=== PATIENT | male | born 1960 | race Caucasian/White ===

== ENCOUNTER 2018-02-01 19:27 | Inpatient (IN) ==
[2018-02-01] MEDS ORDERED: Gentamicin/NS 80 mg Premix 100 ML IV.SIG ONE (23:05)
[2018-02-01] MEDS ORDERED: ceFAZolin 2 GM Premix Inj 2 GM/50 ML PIGGYBACK IV.SIG ONE (23:05)
[2018-02-01] MEDS ORDERED: Sodium Chlor 0.9% Inj 500 ML IV.SIG ONE (23:05)
[2018-02-01] MEDS ORDERED: Diphtheria/Tetanus/Pertussis Vaccine Inj 0.5 ML Syringe IM ONE (23:08)
--- NOTE | 2018-02-01 23:08 | ED ---
HPI General Chief complaint: Extremity Injury, Lower Stated complaint: Fall Time Seen by Provider: 02/01/18 22:39 Source: patient Mode of arrival: ambulatory Limitations: no limitations History of Present Illness HPI narrative: The patient is a 57 year old male who presents to the [facility] emergency department with a history of tripping while walking this morning at approximately 4 AM turning his right foot under. He denies having any other injury associated with this. 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 He reports that the pins in the right great toe were removed years ago. The patient reports that he acquired a laceration along the base of the right great toe, however he had many things to do throughout the day and did not have it evaluated until this evening when he went to a local urgent care center. He reports that they did an x-ray and noted that the patient had a fracture. They sent him to the emergency department for evaluation for an open fracture of the foot. He denies hitting his head or losing consciousness. He denies having any neck pain , numbness or tingling to his arms or legs that is new, or weakness of his arms or legs that is new. On review of systems otherwise, he denies having any known recent fevers, cough, congestion, chest pain, shortness of breath, abdominal pain, vomiting, diarrhea, urinary symptoms, or other neurologic symptoms. Patient reports that he has been moving his bowels regularly. The patient cannot recall when his tetanus was last updated. Related Data Home Medications Medication Instructions Recorded Confirmed No Known Home Medications 02/02/18 02/02/18 Allergies Allergy/AdvReac Type Severity Reaction Status Date / Time No Known Allergies Allergy Verified 02/01/18 22:35 Review of Systems ROS Unobtainable All other systems reviewed negative except as stated in HPI [facility] Medical History Medical History Acoustic neuroma (Acute) Mjvkudm-Uldvp-Bhvmj disease (Acute) Hyperlipemia (Acute) Acid reflux (Acute) Surgical History Surgical History H/O foot surgery (Acute) H/O knee surgery (Acute) Social History Social History Substance History: No History of Abuse, Active Abuse and Past History Second Hand Smoke Exposure: No Smoking Status: Never smoker How Often Do You Have a Drink Containing Alcohol: 2 to 3 times a week Recent Travel in [facility] within the Last 8 Weeks: No Recent Out of Country Travel within the Last 8 Weeks: No Immunization History Tetanus Immunization: Unsure Hx Influenza Vaccine This Season: No Exam Const General: cooperative, no acute distress and well developed Nutritional Appearance: well nourished Orientation: alert, awake and oriented x3 HENMT Head: normocephalic and atraumatic Nose: no nasal discharge and no epistaxis Mouth: moist mucous membranes Throat: posterior oropharynx normal Eyes Sclera: normal sclerae Pupils: PERRL Neck Neck: trachea midline and no JVD Resp Effort & Inspection: no use of accessory muscles Auscultation: clear to auscultation bilaterally Cardio Rate: regular rate Rhythm: regular rhythm Heart Sounds: no murmurs GI Inspection: non-distended Palpation: soft, no hepatosplenomegaly and nontender Auscultation: normal bowel sounds Back/Spine/Pelvis Back: no CVA tenderness Thoracic/Lumbar Spine: thoracic and lumbar spine normal to inspection Skin General: dry skin (warm) Trauma: laceration (Patient has a laceration along the base of the great toe right foot. This is along the sole. This is approximately 4 cm in greatest dimension. There is no active bleeding.) Neuro General: alert, awake and oriented x3 Cranial Nerves: CN's II-XI intact bilaterally Speech: speech normal Motor: no movement abnormalities noted Sensory Exam: no sensory deficits noted Extrem General: normal to inspection, no clubbing, no cyanosis and edema (Specifically involving the right foot, the area of interest) Right upper extremity: normal to inspection Left upper extremity: normal to inspection Right lower extremity: foot Details: normal capillary refill, abnormal to inspection, ecchymosis and other (On examination of the patient's right foot the patient is noted to have swelling to the first, second, and third digit with ecchymosis involving the first, second, and third digit. The patient is noted to have a laceration along the sole of the foot base of the great toe. Bleeding is controlled.) Psych Mood: congruent mood Affect: normal affect Judgment: judgment good Course Consultations Consultation #1: The patient's case including history, pertinent physical examination findings, and laboratory studies were discussed with Dr. Rodriguez, the bellhop. He agreed with the plan to start the patient on IV antibiotic. He requested that the patient be admitted to the medical service and he will see the patient in consultation. Time: 23:35 Consultation #2: The patient's case including history, pertinent physical examination findings, and laboratory studies were discussed with Dr. Sagastume. It was agreed that the patient would be admitted to the hospitalist service. Initial Documented Vital Signs Temperature 99.3 F 02/01/18 21:15 Pulse Rate 71 02/01/18 21:15 Respiratory Rate 16 02/01/18 21:15 Blood Pressure 143/73 H 02/01/18 21:15 Pulse Oximetry 97 02/01/18 21:15 Last Documented Vital Signs Temperature 97.6 F 02/02/18 04:05 Pulse Rate 61 02/02/18 04:05 Respiratory Rate 18 02/02/18 04:05 Blood Pressure 96/59 L 02/02/18 04:05 Pulse Oximetry 96 02/02/18 04:05 Medical Decision Making MDM Narrative Medical decision making narrative: During the course of the patient's emergency department visit, the patient's history, examination, and differential diagnosis were reviewed with the patient. The patient was placed on a monitor and storage bin tender with oximetry and frequent blood pressure monitoring. The patient had IV access obtained and blood work sent for analysis. A workup was started regarding the patient's reported open fracture of the right foot. Differential diagnosis includes neurovascular injury to the right foot, versus open fracture , versus laceration. The patient was initially provided an update to his tetanus, Ancef 2 g IV, gentamicin 80 mg IV. The patient's white blood cell count is 8.1, platelets 173 with a monocytosis at 9.3, hemoglobin 15.3, PT 10.3, PTT 23.9, chemistry is remarkable for a glucose of 140, GFR 86. The patient's imaging revealed a right foot x-ray that shows a mildly displaced fracture of the great toe extending intra-articularly at the first metatarsal- phalangeal. Fracture line also extending through the distal portion of the proximal phalanx. The patient's case was discussed with the bellhop on-call. He recommended that the patient be admitted to the hospitalist service and he will see the patient in consultation. The patient was placed in a short posterior leg splint after the patient's wound was irrigated and dressed. The patient's results were discussed with the patient, including the plan of care. I explained that further testing and/ or monitoring is indicated based on the patient's history, examination, and/ or laboratory findings. Therefore, I recommended admission for additional evaluation. The patient expressed understanding and was agreeable with this plan. The patient was admitted to the hospital in stable condition and sent to a bed under the care of the service. Differential Diagnosis Differential Diagnosis: neurovascular injury to the right foot, versus tendon injury to the right foot, versus open fracture, versus laceration Medical Records Medical records reviewed: Yes I reviewed the patient's medical records. Lab Data Result diagrams: 02/01/18 23:20 02/01/18 23:20 Lab Results 02/01/18 02/01/18 02/01/18 Range/Units 23:20 23:20 23:20 WBC 8.1 (4.0-11.0) th/mm3 RBC 4.81 (4.50-5.90) mil/mm3 Hgb 15.3 (13.0-17.0) gm/dL Hct 45.0 (39.0-51.0) % MCV 93.5 (80.0-100.0) fL MCH 31.8 (27.0-34.0) pg MCHC 34.0 (32.0-36.0) % RDW 12.8 (11.6-17.2) % Plt Count 173 (150-450) th/mm3 MPV 8.4 (7.0-11.0) fL Neut % (Auto) 64.9 (16.0-70.0) % Lymph % (Auto) 23.2 (9.0-44.0) % [place] % (Auto) 9.3 H (0.0-8.0) % Eos % (Auto) 2.1 (0.0-4.0) % Baso % (Auto) 0.5 (0.0-2.0) % Neut # (Auto) 5.3 (1.8-7.7) th/mm3 Lymph # (Auto) 1.9 (1.0-4.8) th/mm3 [place] # (Auto) 0.8 (0.0-0.9) th/mm3 Eos # (Auto) 0.2 (0.0-0.4) th/mm3 Baso # (Auto) 0.0 (0.0-0.2) th/mm3 WBC Differential . Differential Comment Auto diff final PT 10.3 (9.8-11.6) sec INR 1.0 Ratio APTT 23.9 L (24.3-30.1) sec Sodium 143 (136-145) meq/L Potassium 3.7 (3.5-5.1) meq/L Chloride 106 (98-107) meq/L Carbon Dioxide 24.5 (21.0-32.0) meq/L Anion Gap 13 (5-15) meq/L BUN 11 (7-18) mg/dL Creatinine 0.91 (0.60-1.30) mg/dL Estimated GFR 86 L (>89) mL/min Random Glucose 140 H (74-106) mg/dL Calcium 9.4 (8.5-10.1) mg/dL Imaging Data Radiologist's impression: Foot X-Ray 02/01/18 23:02 CONCLUSION: Mildly displaced fractures of the right great toe. No dislocation. Discharge Plan Discharge Disposition Patient Disposition: 30 Still Patient Discharge Details Diagnosis: Open fracture of great toe of right foot Physicians Team ED Provider: Yessica Berkowitz Primary Care Provider: Primary Care Beth Palmer Attending Provider: Rodney Johnson Other Providers: Tyrell Rodriguez Discharge Interventions Interventions: Vital Signs Last Done: 02/02/18 01:19 Status ED Status: Admitted Observation Patient
[2018-02-01 23:33] LABS: Baso % (Auto) 0.5 % (0.0-2.0); Eos # (Auto) 0.2 th/mm3 (0.0-0.4); Eos % (Auto) 2.1 % (0.0-4.0); Hemoglobin 15.3 gm/dL (13.0-17.0); Lymph # (Auto) 1.9 th/mm3 (1.0-4.8); Lymph % (Auto) 23.2 % (9.0-44.0); Mean Corpuscular Hemoglobin 31.8 pg (27.0-34.0); Mean Corpuscular Volume 93.5 fL (80.0-100.0); Mean Platelet Volume 8.4 fL (7.0-11.0); Mono # (Auto) 0.8 th/mm3 (0.0-0.9); Mono % (Auto) 9.3 % (0.0-8.0); Neut # (Auto) 5.3 th/mm3 (1.8-7.7); Neut % (Auto) 64.9 % (16.0-70.0); Platelet Count 173 th/mm3 (150-450); Red Blood Count 4.81 mil/mm3 (4.50-5.90); Red Cell Distribution Width 12.8 % (11.6-17.2); White Blood Count 8.1 th/mm3 (4.0-11.0)
[2018-02-01 23:41] LABS: Activated Partial Thrombo Time 23.9 sec (24.3-30.1); Prothrombin Time 10.3 sec (9.8-11.6)
[2018-02-01 23:54] LABS: Calcium 9.4 mg/dL (8.5-10.1); Carbon Dioxide 24.5 meq/L (21.0-32.0); Potassium 3.7 meq/L (3.5-5.1)
--- NOTE | 2018-02-01 23:59 | XR ---
EXAM DATE: 02/01/2018 11:25 PM EDT AGE/SEX: 57 years / Male INDICATIONS: Inflammation and bruising to right foot status post fall. Laceration to posterior aspec t of 1st digit, right foot. CLINICAL DATA: This is the patient's initial encounter. Patient reports that signs and symptoms have been present for 1 day and indicates a pain score of 7/10. MEDICAL/SURGICAL HISTORY: None. None. COMPARISON: No prior exams available for comparison. FINDINGS: Mildly displaced fracture of the great toe extending intra-articularly at the first MTP. There may be fusion across the interphalangeal joint. Fracture line also extending through the distal portion pro ximal phalanx. No other fracture identified. Moderate degenerative change in the right foot. CONCLUSION: Mildly displaced fractures of the right great toe. No dislocation. Electronically signed by: Arnold Szymanski MD 02/01/2018 11:57 PM EDT
[2018-02-02] MEDS ORDERED: Bisacodyl 10 MG Supp RECTAL PRN (00:47)
[2018-02-02] MEDS ORDERED: Acetaminophen 325 MG Tablet PO PRN (00:47)
[2018-02-02] MEDS ORDERED: Temazepam 15 MG Capsule PO PRN (00:47)
[2018-02-02] MEDS ORDERED: Morphine Inj 4 MG/ML Vial IV.PUSH PRN (00:55)
--- NOTE | 2018-02-02 01:02 | P.HP ---
History of Present Illness Service: [facility] Primary Care Physician: No Primary Care Physician Chief Complaint: Right great toe injury History of Present Illness: 57 year old male with a PMH of GERD, HLD and Nenyphe-Kvozs-Xyzen presents to the ED for evaluation of a right great toe injury. The patient reports he was walking this morning after getting out of bed when he tripped on the rug and fell, bending his foot underneath his body. He reports heavy bleeding from a laceration for the next 2 hours. He was able to stop the bleeding and ran errands until this evening when he sought out evaluation from urgent care. There was concern for an open fracture and the patient was sent to the ED for further evaluation. He denies any pain in the foot. No fever/chills. No CP, SOB. No abdominal pain. No nausea/vomiting/diarrhea. Inpatient Certification: I certify that the inpatient services were ordered in accordance with Medicare regulations governing the order. This includes certification that hospital inpatient services are reasonable and necessary and in the case of services not specified as inpatient-only under 42 CFR 419.22(n), that they are appropriately provided as inpatient services in accordance to with the 2-midnight benchmark under 43 CFR 412.3(e) Estimated Total Length of Stay (Days): 2 Plans for Post Hospital Care: Home Review of Systems All other systems reviewed negative except as stated in HPI [facility] - History History Provided By: Patient - Medical History Medical History: Medical History (Last Updated 02/01/18 @ 23:12 by Yessica Berkowitz MD) Acoustic neuroma Ksbabna-Harxz-Sqchm disease Hyperlipemia Acid reflux - Surgical History Surgical History: Surgical History (Last Updated 02/01/18 @ 22:32 by Acacia Cooper) H/O foot surgery H/O knee surgery - Tobacco History Second Hand Smoke Exposure: No Tobacco Use In Past 30 Days: No Smoking Status: Never smoker - Alcohol History How Often Do You Have a Drink Containing Alcohol: 2 to 4 times a month - Substance Use History Substance History: No History of Abuse - Travel History Recent Travel in the [place] Within the Last 8 Weeks: No Recent Travel Out of the Country Within the Last 8 Weeks: No - Immunization History Tetanus Immunization: Unsure Hx Influenza Vaccine This Season: No Medications and Allergies Active Medications: Active Medications Acetaminophen (Tylenol) 650 mg PO Q4H PRN PRN Reason: Temp > 100.4 Al Hydroxide/Mg Hydroxide (Milk Of Magnesia Liq) 30 ml PO Q12H PRN PRN Reason: Mild Constipation Bisacodyl (Dulcolax Supp) 10 mg RECTAL DAILY PRN PRN Reason: SEVERE CONSITIPATION Cefazolin Sodium 1,000 mg/ (Sodium Chloride) 100 mls @ 200 mls/hr IV.SIG Q8H BLAYNE Sodium Chloride (Ns Inj) 1,000 mls @ 100 mls/hr IV.CONT .Q10H BLAYNE Gentamicin Sulfate/Sodium Chloride (Gentamicin/Ns 80 Mg Premix) 100 mls @ 200 mls/hr IV.SIG Q8H BLAYNE Lactulose (Lactulose Liq) 30 ml PO DAILY PRN PRN Reason: SEVERE CONSITIPATION Morphine Sulfate (Morphine Inj) 4 mg IV.PUSH Q4H PRN PRN Reason: pain 6-10 Ondansetron HCl (Zofran Inj) 4 mg IV.PUSH Q6H PRN PRN Reason: NAUSEA OR VOMITING Senna/Docusate Sodium (Surekha-Colace) 1 tab PO BID BLAYNE Sennosides (Senokot) 17.2 mg PO Q12H PRN PRN Reason: Moderate Constipation Temazepam (Restoril) 15 mg PO HS PRN PRN Reason: INSOMNIA Allergies Allergy/AdvReac Type Severity Reaction Status Date / Time No Known Allergies Allergy Verified 02/01/18 22:35 Exam Vital signs: Vital Signs 02/01/18 21:15 02/01/18 23:48 Temperature 99.3 F Pulse Rate 71 81 Respiratory Rate 16 Blood Pressure 143/73 H Pulse Oximetry 97 Intake & Output 02/01/18 02/01/18 02/02/18 06:59 18:59 06:59 Weight 79.379 kg Narrative: Gen.: No acute distress Head: Normocephalic. Atraumatic. EENT: Pupils equal round and reactive to light. Nose without drainage. Airway intact. Throat without injection. Cardiovascular: Regular rate and rhythm. No murmurs, rubs or gallops. Respiratory: Lungs clear to auscultation bilaterally. No wheezes or rhonchi. Abdomen: Soft, nontender, nondistended. No peritoneal signs. Musculoskeletal: Swelling and ecchymoses along right foot worse in the right great toe. Unable to flex or extend right great toe. Skin: 4 cm laceration along the base of the right great toe, hemostatic. Neuro: Sensory and motor grossly intact. Cranial nerves II through XII grossly intact. Psych: Appropriate mood and affect Results - Labs CBC & Chem 7: 02/01/18 23:20 02/01/18 23:20 Labs: Laboratory Results - last 24 hr 02/01/18 02/01/18 02/01/18 23:20 23:20 23:20 WBC 8.1 RBC 4.81 Hgb 15.3 Hct 45.0 MCV 93.5 MCH 31.8 MCHC 34.0 RDW 12.8 Plt Count 173 MPV 8.4 Neut % (Auto) 64.9 Lymph % (Auto) 23.2 [place] % (Auto) 9.3 H Eos % (Auto) 2.1 Baso % (Auto) 0.5 Neut # (Auto) 5.3 Lymph # (Auto) 1.9 [place] # (Auto) 0.8 Eos # (Auto) 0.2 Baso # (Auto) 0.0 WBC Differential . Differential Comment Auto diff final PT 10.3 INR 1.0 APTT 23.9 L Sodium 143 Potassium 3.7 Chloride 106 Carbon Dioxide 24.5 Anion Gap 13 BUN 11 Creatinine 0.91 Estimated GFR 86 L Random Glucose 140 H Calcium 9.4 - Imaging Impressions Foot X-Ray 02/01/18 23:02 CONCLUSION: Mildly displaced fractures of the right great toe. No dislocation. Caprini VTE Risk Assessment Caprini VTE Risk Assessment: No/Low Risk (score <= 1) Caprini Risk Assessment Model: Point Value = 1 Point Value = 2 Point Value = 3 Point Value = 5 Age 41-60 Minor surgery BMI > 25 kg/m2 Swollen legs Varicose veins or History of unexplained or recurrent spontaneous Oral contraceptives or hormone replacement Sepsis (< 1 month) Serious lung disease, including pneumonia (< 1 month) Abnormal pulmonary function Acute myocardial infarction Congestive heart failure (< 1 month) History of inflammatory bowel disease Medical patient at bed rest Age 61-74 Arthroscopic surgery Major open surgery (> 45 min) Laparoscopic surgery (> 45 min) Malignancy Confined to bed (> 72 hours) Immobilizing plaster cast Central venous access Age >= 75 History of VTE Family history of VTE Factor V Leiden Prothrombin [id number] Lupus anticoagulant Anticardiolipin antibodies Elevated serum homocysteine Heparin-induced thrombocytopenia Other congenital or acquired thrombophilia Stroke (< 1 month) Elective arthroplasty Hip, pelvis, or leg fracture Acute spinal cord injury (< 1 month) Prophylaxis Regimen: Total Risk Factor Score Risk Level Prophylaxis Regimen 0-1 Low Early ambulation 2 Moderate Order ONE of the following: *Sequential Compression Device (SCD) *Heparin 5000 units SQ BID 3-4 Higher Order ONE of the following medications: *Heparin 5000 units SQ TID *Enoxaparin/Lovenox 40 mg SQ daily (WT < 150 kg, CrCl > 30 mL/min) *Enoxaparin/Lovenox 30 mg SQ daily (WT < 150 kg, CrCl > 10-29 mL/min) *Enoxaparin/Lovenox 30 mg SQ BID (WT < 150 kg, CrCl > 30 mL/min) AND/OR *Sequential Compression Device (SCD) 5 or more Highest Order ONE of the following medications: *Heparin 5000 units SQ TID (Preferred with Epidurals) *Enoxaparin/Lovenox 40 mg SQ daily (WT < 150 kg, CrCl > 30 mL/min) *Enoxaparin/Lovenox 30 mg SQ daily (WT < 150 kg, CrCl > 10-29 mL/min) *Enoxaparin/Lovenox 30 mg SQ BID (WT < 150 kg, CrCl > 30 mL/min) AND *Sequential Compression Device (SCD) Assessment and Plan - Plan Assessment/plan: 1. Open right great toe fracture Foot x-ray significant for mildly displaced fractures of the right great toe without dislocation Laceration present concern for tendon injury and or open fracture Ancef and gentamicin Podiatry consulted, appreciate assistance 2. GERD/hyperlipidemia Continue home medications once reconciled FEN N.p.o. Electrolytes: Monitor and replete as needed NS at 100 cc/hour
[2018-02-02] MEDS: Sod Chloride 0.9% Inj 1,000 ML IV.CONT SCH ×2 (01:28→22:14)
[2018-02-02] MEDS ORDERED: Gentamicin/NS 80 mg Premix 100 ML IV.SIG SCH (08:00)
[2018-02-02] MEDS: Senna/Docusate Sodium 8.6/50 MG Tablet PO SCH ×2 (08:47→22:22)
--- NOTE | 2018-02-02 09:01 | MB ---
cc: Tyrell OlveraM DATE: 02/02/2018 REASON FOR CONSULTATION: Right hallux laceration with possible open fracture. HISTORY OF PRESENT ILLNESS: This is a 57-year-old male who at 4:00 a.m. yesterday sustained injury. The patient has neuropathy and CMT. He went to an urgent care center. He was then sent to the hospital given the extent of the injury. I was notified at approximately midnight of the patient's issue. The patient had a fracture and a laceration that appeared to communicate. The patient had started antibiotics. Currently I am seeing the patient bedside. He does not have significant discomfort. He has a long-term history of dealing with his CMT. He was not wearing his brace when he sustained the fall. He is seen bedside with his . PAST MEDICAL HISTORY: CMT, peripheral neuropathy, multiple reconstructive foot and ankle surgeries from when he was much younger, acoustic neuroma, hyperlipidemia, and acid reflux. PAST SURGICAL HISTORY: Foot surgery and knee surgery. ALLERGIES: NONE LISTED. SOCIAL HISTORY: Occasional alcohol. OUTPATIENT MEDICATIONS: Reviewed. INPATIENT MEDICATIONS: He has received antibiotics, gentamicin and cefazolin, as well as an update of his tetanus. PHYSICAL EXAMINATION: GENERAL: This is an alert and oriented male seen at bedside exhibiting nonlabored respirations. EXTREMITIES: The patient has significant muscle wasting below the patient's knee. Right hallux is examined. There is a plantar partial circumferential laceration of the hallux. There is limited movement. There is good alignment. There is bruising and edema of the lesser digits. There is no active bleeding. Mild strike-through noted on compressive bandage. Pedal pulses are fully palpable. Sensation decreased to light touch. The left foot is without any obvious injury. LABORATORY DATA: White blood cell 8.1, hemoglobin and hematocrit 15 and 45, platelet count is 173. Coagulation profile: PT 10.3, INR 1.0. Chem-7: Sodium 143, potassium 3.7, chloride 106, CO2 is 24.5, BUN is 11, creatinine 0.91. Random glucose is 140. X-RAY FINDINGS: Mildly comminuted fracture with minimal displacement of the proximal phalanx. It appears to be somewhat intraarticular. There appears to be a prior history of a first MPJ fusion as I cannot see the patient's IPJ. No obvious foreign body noted. Mild disuse osteopenia is noted. ASSESSMENT AND PLAN: Right hallux fracture, laceration, possible flexor hallucis longus tendon involvement. The plan is for operative incision, drainage, debridement, wound exploration, possible open reduction and internal fixation with repair of tendon. Deep cultures will be taken. The patient will continue IV antibiotics. Anticipate discharge within the next 48 hours. Given the extent of the injury must have a negative culture or at least pathogen identified. Surgery is planned for later today. The patient can have a clear liquid breakfast. ARACELI Sharp/KUMAR , 08:43 AM , 09:00 AM
[2018-02-02] MEDS: Gentamicin Inj 80 MG in Sodium Chlor 0.9% Inj 100 ML IV.SIG SCH ×2 (10:23→22:15)
[2018-02-02] MEDS ORDERED: Chlorhexidine Gluconate 2% 1 Pack (2 Cloths) TOPICAL SCH (15:15)
[2018-02-02] MEDS ORDERED: Metoprolol Tartrate 25 MG Tablet PO SCH (15:15)
[2018-02-02] MEDS ORDERED: Bupivacaine PF 0.25% Inj 30 ML Vial ONE (15:50)
[2018-02-02] MEDS ORDERED: Sodium Chlor 0.9% Inj 500 ML IV.SIG SCH (16:00)
[2018-02-02] MEDS ORDERED: Lidocaine PF 1% Inj 5 ML Syringe INFILTRATN ONE (17:15)
--- NOTE | 2018-02-02 17:29 | P.BOP ---
- Preoperative Diagnosis (1) Laceration of right foot (2) Open fracture of great toe of right foot - Postoperative Diagnosis (1) Open fracture of great toe of right foot (2) Laceration of right foot Date of procedure: 02/02/18 Procedure: Right hallux proximal phalanx ORIF Repair of complex laceration Anesthesia: GETA Surgeon: Tyrell Rodriguez DPM Estimated blood loss (mL): 10 (mL) Tourniquet time (min): 30 (250mmhg rt calf) Pathology: other (right hallux bone cx) Condition: stable Disposition: PACU
[2018-02-02] MEDS ORDERED: fentaNYL Citrate Inj 100 MCG/2 ML Ampul ONE (17:48)
--- NOTE | 2018-02-02 17:49 | MP ---
cc: Tyrell Olvera DPM DATE OF OPERATION: 02/02/2018 PREOPERATIVE DIAGNOSIS: Complex laceration to right foot with open fracture of the proximal phalanx. POSTOPERATIVE DIAGNOSIS: Complex laceration to right foot with open fracture of the proximal phalanx. PROCEDURE PERFORMED: Open reduction and internal fixation of proximal phalanx, as well as repair of complex laceration. ANESTHESIA: General. ESTIMATED BLOOD LOSS: Less than 10 mL. TOURNIQUET TIME: Approximately 30 minutes at a setting of 250 mmHg about the patient's right calf. SPECIMENS: Deep culture taken of bone. CONDITION: Stable. DISPOSITION: Return to floor, continue at least 1 more day of IV antibiotics and monitor viability of digit. HISTORY OF PRESENT ILLNESS: This is a 57-year-old male who sustained an injury. The patient has CMT. He did not have much discomfort, presented to urgent care. Urgent care then directed him to [place]. He received IV antibiotics sometime last night and update of his tetanus. We devised a plan to move forward with cleaning of the fracture and possible pinning and possible tendon repair initially. The patient understood he may need a prolonged course of IV antibiotic. PROCEDURE IN DETAIL: Under mild sedation, the patient was brought into the operating room, placed on the operating table in the supine position. Following the induction of general anesthesia, the right lower extremity was then scrubbed, prepped and draped in the usual aseptic fashion. The foot was elevated, exsanguinated and a previously placed mid calf tourniquet was inflated to 250 mmHg. There was a partial circumferential laceration of the plantar half of the hallux. There was noted to be intact FHL. Upon manipulating the proximal phalanx, there was noted to be complete instability. Of note, the patient had a prior IPJ fusion secondary to a CMT procedure. The wound was then flushed with 3 liters of pulse lavage normal saline with irrigant. Deep adipose and fat as well as periosteum was gently debrided. Reduction then took place of the digit and 2 parallel wires were then placed from the distal phalanx all the way across the proximal phalanx, stopping just short of the first MPJ with near anatomic alignment. There was noted to be stability in the 3 planes. Intraoperative mini C-arm was utilized. Utilizing Vicryl and nylon, the plantar laceration was then coapted. The tourniquet was dropped. There was good viability of the digit with capillary fill time. A bulky bandage applied. A Munoz compressive dressing and a posterior splint was also applied. The patient was transferred from OR to PACU with all vital signs stable. My recommendation is a minimum of 1 more day of Ancef and gentamicin. Wound culture was taken. The patient will likely need to go home on at least at minimum oral antibiotics. Given his CMT, he may have issues with being nonweightbearing of the right foot. I may permit heel transfer or touch weightbear; however, prefer nonweightbearing if possible. ARACELI Sharp/KUMAR , 05:28 PM , 05:48 PM
[2018-02-03] MEDS: Gentamicin Inj 80 MG in Sodium Chlor 0.9% Inj 100 ML IV.SIG SCH ×3 (01:20→17:27)
[2018-02-03 05:46] LABS: Baso % (Auto) 0.1 % (0.0-2.0); Eos % (Auto) 0.2 % (0.0-4.0); Hematocrit 41.8 % (39.0-51.0); Hemoglobin 14.2 gm/dL (13.0-17.0); Lymph # (Auto) 0.8 th/mm3 (1.0-4.8); Mean Corpuscular Volume 94.2 fL (80.0-100.0); Mean Platelet Volume 8.6 fL (7.0-11.0); Mono # (Auto) 0.3 th/mm3 (0.0-0.9); Mono % (Auto) 4.8 % (0.0-8.0); Neut # (Auto) 5.1 th/mm3 (1.8-7.7); Neut % (Auto) 81.9 % (16.0-70.0); Platelet Count 168 th/mm3 (150-450); Red Blood Count 4.44 mil/mm3 (4.50-5.90); Red Cell Distribution Width 12.5 % (11.6-17.2); White Blood Count 6.2 th/mm3 (4.0-11.0)
[2018-02-03 06:02] LABS: Anion Gap 8 meq/L (5-15); Blood Urea Nitrogen 12 mg/dL (7-18); Calcium 8.9 mg/dL (8.5-10.1); Carbon Dioxide 26.1 meq/L (21.0-32.0); Chloride 108 meq/L (98-107); Glomerular Filtration Rate Greater Than 89 mL/min (>89); Glucose,Random 122 mg/dL (74-106); Potassium 4.2 meq/L (3.5-5.1); Sodium 142 meq/L (136-145)
[2018-02-03] MEDS: Senna/Docusate Sodium 8.6/50 MG Tablet PO SCH ×2 (09:05→20:48)
--- NOTE | 2018-02-03 12:47 | P.PNIM ---
Subjective Interval history: The patient was sitting up in a chair. His was at the bedside. He said he had no pain. He wanted to know if he would be able to travel by airplane within a week. He wanted to know when the media librarian would come by. He had no acute complaints. Physical Exam Vital signs: Vital Signs 02/02/18 17:26 02/02/18 17:30 02/02/18 17:45 Temperature 96.8 F L Pulse Rate 81 72 65 Respiratory Rate 12 12 12 Blood Pressure 128/70 120/69 122/72 Pulse Oximetry 99 98 02/02/18 18:00 02/02/18 18:15 02/02/18 20:00 Temperature 97.4 F L 98.2 F Pulse Rate 66 63 66 Respiratory Rate 12 12 22 Blood Pressure 118/70 116/67 115/71 Pulse Oximetry 97 98 95 02/03/18 00:00 02/03/18 03:00 02/03/18 04:00 Temperature 97.3 F L 97.2 F L Pulse Rate 68 65 Respiratory Rate 17 17 17 Blood Pressure 91/52 L 106/55 L Pulse Oximetry 95 97 02/03/18 08:00 Temperature 97.9 F Pulse Rate 86 Respiratory Rate 18 Blood Pressure 112/58 L Pulse Oximetry 97 Intake & Output 02/02/18 02/03/18 02/03/18 18:59 06:59 18:59 Intake Total 902 / 902 Output Total 5 / 5 600 / 600 Balance 897 / 897 -398 / -398 Weight 79.5 kg Intake: IV / Gentamicin Inj 80 MG In NS Inj 102 / 102 102 / 102 100 ML @ 100 mls/hr IV.SIG Q8H [facility] Rx#:[id number] Ancef Inj 1,000 MG In NS Inj 100 / 100 100 / 100 100 ML @ 200 mls/hr IV.SIG Q8H [facility] Rx#:[id number] Anesthesia Amount 700 / 700 Output: Urine 0 / 0 600 / 600 Estimated Blood Loss 5 / 5 Other: Date of Last Bowel Movement 02/01/18 02/01/18 Narrative: Gen.: No acute distress Head: Normocephalic. Atraumatic. EENT: Pupils equal round and reactive to light. Nose without drainage. Airway intact. Throat without injection. Cardiovascular: Regular rate and rhythm. No murmurs, rubs or gallops. Respiratory: Lungs clear to auscultation bilaterally. No wheezes or rhonchi. Abdomen: Soft, nontender, nondistended. No peritoneal signs. Musculoskeletal: Right foot is bandaged. Neuro: Sensory and motor grossly intact. Cranial nerves II through XII grossly intact. Psych: Appropriate mood and affect Results - Labs CBC & Chem 7: 02/03/18 04:50 02/03/18 04:50 Laboratory Results - last 24 hr 02/03/18 02/03/18 04:50 04:50 WBC 6.2 RBC 4.44 L Hgb 14.2 Hct 41.8 MCV 94.2 MCH 32.0 MCHC 34.0 RDW 12.5 Plt Count 168 MPV 8.6 Neut % (Auto) 81.9 H Lymph % (Auto) 13.0 [place] % (Auto) 4.8 Eos % (Auto) 0.2 Baso % (Auto) 0.1 Neut # (Auto) 5.1 Lymph # (Auto) 0.8 L [place] # (Auto) 0.3 Eos # (Auto) 0.0 Baso # (Auto) 0.0 WBC Differential . Differential Comment Auto diff final Sodium 142 Potassium 4.2 Chloride 108 H Carbon Dioxide 26.1 Anion Gap 8 BUN 12 Creatinine 0.81 Estimated GFR Greater than 89 Random Glucose 122 H Calcium 8.9 Microbiology 02/02/18 16:15 Other Fungal Smear - Final No fungal elements seen 02/02/18 16:15 Tissue - Toe Gram Stain - Final - Procedures Right hallux proximal phalanx ORIF Repair of complex laceration Assessment and Plan - Plan Open right great toe fracture Foot x-ray significant for mildly displaced fracture of the right great toe without dislocation. Laceration present, concern for tendon injury. Podiatry consult appreciated. S/p right hallux proximal phalanx ORIF; Repair of complex laceration 02/02. - continue Ancef and gentamicin. Oral antibiotics upon discharge. - wound care and weightbearing per podiatry. - pain control as needed. GERD/hyperlipidemia Stable. - Continue home medications once reconciled. Hyperglycemia May be a stress reaction. - check an A1c. PPx: Per surgery
--- NOTE | 2018-02-03 18:43 | ECG ---
Date Performed: 02/02/2018 Time Performed: 15:04:29 PTAGE: 57 years EKG: Sinus rhythm NORMAL ECG NO PREVIOUS TRACING DOCTOR: Yash Berkowitz Interpretating Date/Time 02/03/2018 18:41:27
[2018-02-03] MEDS: Sod Chloride 0.9% Inj 1,000 ML IV.CONT SCH (20:46)
--- NOTE | 2018-02-03 21:28 | P.PNPOD ---
Subjective Interval history: Patient seen bedside. Resting comfortably with present. Denies any pain to his right foot. Physical Exam Vital signs: Vital Signs 02/03/18 00:00 02/03/18 03:00 02/03/18 04:00 Temperature 97.3 F L 97.2 F L Pulse Rate 68 65 Respiratory Rate 17 17 17 Blood Pressure 91/52 L 106/55 L Pulse Oximetry 95 97 02/03/18 08:00 02/03/18 12:00 02/03/18 16:00 Temperature 97.9 F 97.8 F 97.2 F L Pulse Rate 86 71 71 Respiratory Rate 18 16 16 Blood Pressure 112/58 L 103/62 91/53 L Pulse Oximetry 97 97 96 Intake & Output 02/03/18 02/03/18 02/04/18 06:59 18:59 06:59 Intake Total 1042 / 1042 Output Total 600 / 600 Balance -398 / -398 1042 / 1042 Weight 79.5 kg Intake: IV Gentamicin Inj 80 MG In NS Inj 102 / 102 102 / 102 100 ML @ 100 mls/hr IV.SIG Q8H [facility] Rx#:[id number] Ancef Inj 1,000 MG In NS Inj 100 / 100 100 / 100 100 ML @ 200 mls/hr IV.SIG Q8H [facility] Rx#:[id number] Oral 840 / 840 Output: Urine 600 / 600 Other: # Voids 3 Date of Last Bowel Movement 02/01/18 02/01/18 # Bowel Movements 0 Narrative: Right foot with Kwires present to distal aspect of right hallux. 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 Ecchymosis present to digits 1-5. Posterior splint intact to right lower extremity. Medications and Allergies Active Medications: Active Medications Acetaminophen (Tylenol) 650 mg PO Q4H PRN PRN Reason: Temp > 100.4 Al Hydroxide/Mg Hydroxide (Milk Of Magnesia Liq) 30 ml PO Q12H PRN PRN Reason: Mild Constipation Bisacodyl (Dulcolax Supp) 10 mg RECTAL DAILY PRN PRN Reason: SEVERE CONSITIPATION Chlorhexidine Gluconate (Chlorhexidine 2% Cloth) 3 pack TOPICAL CARE TRANSPORT NURSE [facility] Stop: 02/05/18 15:01 Cefazolin Sodium 1,000 mg/ (Sodium Chloride) 100 mls @ 200 mls/hr IV.SIG Q8H [facility] Last Infusion: 02/03/18 20:46 Dose: 100 mls/hr Sodium Chloride (Ns Inj) 1,000 mls @ 100 mls/hr IV.CONT .Q10H [facility] Last Infusion: 02/03/18 20:47 Dose: 100 mls/hr Gentamicin Sulfate 80 mg/ (Sodium Chloride) 102 mls @ 100 mls/hr IV.SIG Q8H [facility] Last Infusion: 02/03/18 20:46 Dose: 100 mls/hr Lactated Ringer's (Lr 1000 Ml Inj) 1,000 mls @ 30 mls/hr IV.SIG .Q24H [facility] Stop: 02/05/18 15:01 Last Admin: 02/03/18 20:46 Dose: Not Given Sodium Chloride (Ns Inj) 500 mls @ 30 mls/hr IV.SIG .Q10H [facility] Stop: 02/05/18 15:01 Lactulose (Lactulose Liq) 30 ml PO DAILY PRN PRN Reason: SEVERE CONSITIPATION Metoprolol Tartrate (Lopressor) 25 mg PO CARE TRANSPORT NURSE [facility] Stop: 02/05/18 15:01 Morphine Sulfate (Morphine Inj) 4 mg IV.PUSH Q4H PRN PRN Reason: pain 6-10 Ondansetron HCl (Zofran Inj) 4 mg IV.PUSH Q6H PRN PRN Reason: NAUSEA OR VOMITING Povidone Iodine (Betadine 5% Antisepsis Kit) 1 applicatio EACH NARE CARE TRANSPORT NURSE [facility] Stop: 02/05/18 15:01 Senna/Docusate Sodium (Surekha-Colace) 1 tab PO BID [facility] Last Admin: 02/03/18 20:48 Dose: 1 tab Sennosides (Senokot) 17.2 mg PO Q12H PRN PRN Reason: Moderate Constipation Sodium Chloride (Ns Flush) 2 ml IV.FLUSH BID [facility] Last Admin: 02/03/18 20:49 Dose: 2 ml Sodium Chloride (Ns Flush) 2 ml IV.FLUSH PRN PRN PRN Reason: FLUSH AFTER USING IV ACCESS Temazepam (Restoril) 15 mg PO HS PRN PRN Reason: INSOMNIA Allergies Allergy/AdvReac Type Severity Reaction Status Date / Time No Known Allergies Allergy Verified 02/01/18 22:35 Home Medications Medication Instructions Recorded Confirmed Type No Known Home Medications 02/02/18 02/02/18 History Results - Labs CBC & Chem 7: 02/03/18 04:50 02/03/18 04:50 Laboratory Results - last 24 hr 02/03/18 02/03/18 02/03/18 04:50 04:50 04:50 WBC 6.2 RBC 4.44 L Hgb 14.2 Hct 41.8 MCV 94.2 MCH 32.0 MCHC 34.0 RDW 12.5 Plt Count 168 MPV 8.6 Neut % (Auto) 81.9 H Lymph % (Auto) 13.0 [place] % (Auto) 4.8 Eos % (Auto) 0.2 Baso % (Auto) 0.1 Neut # (Auto) 5.1 Lymph # (Auto) 0.8 L [place] # (Auto) 0.3 Eos # (Auto) 0.0 Baso # (Auto) 0.0 WBC Differential . Differential Comment Auto diff final Sodium 142 Potassium 4.2 Chloride 108 H Carbon Dioxide 26.1 Anion Gap 8 BUN 12 Creatinine 0.81 Estimated GFR Greater than 89 Random Glucose 122 H Hemoglobin A1c 5.0 Calcium 8.9 Microbiology 02/02/18 16:15 Tissue - Toe Gram Stain - Final 02/02/18 16:15 Tissue - Toe Wound Culture - Preliminary No growth in 24 hours 02/02/18 16:15 Other Fungal Smear - Final No fungal elements seen - Procedures Right hallux proximal phalanx ORIF Repair of complex laceration Assessment and Plan - Plan 57 year old male s/p right hallux ORIF Patient examined and evaluated with all questions answered Recommend patient be discharged with walker as he states he feels unsteady without it, case management to assist with discharge Patient to follow up with Dr. Olvera prior to leaving and heading back to [place] next week. Patient states they would like to follow up with him in office Posterior splint to right LE to remain clean, dry and intact NWB to the right foot Await final cultures prior to discharge Appropriate antibiotics per wound culture
[2018-02-04] MEDS: Gentamicin Inj 80 MG in Sodium Chlor 0.9% Inj 100 ML IV.SIG SCH ×3 (02:49→17:06)
[2018-02-04] MEDS: Senna/Docusate Sodium 8.6/50 MG Tablet PO SCH ×2 (09:08→20:35)
[2018-02-04] MEDS: Sod Chloride 0.9% Inj 1,000 ML IV.CONT SCH ×2 (10:05→15:28)
--- NOTE | 2018-02-04 10:16 | P.PNIM ---
Subjective Interval history: The patient was feeling well. He was hopeful to go home by tomorrow. He denied any pain. He has had a bowel movement. Discussed with nursing at the bedside. Physical Exam Vital signs: Vital Signs 02/03/18 12:00 02/03/18 16:00 02/03/18 19:25 Temperature 97.8 F 97.2 F L 97.6 F Pulse Rate 71 71 65 Respiratory Rate 16 16 17 Blood Pressure 103/62 91/53 L 94/53 L Pulse Oximetry 97 96 96 02/04/18 00:25 02/04/18 08:00 Temperature 98.3 F 98.3 F Pulse Rate 60 67 Respiratory Rate 17 18 Blood Pressure 94/55 L 109/53 L Pulse Oximetry 97 97 Intake & Output 02/03/18 02/04/18 02/04/18 18:59 06:59 18:59 Intake Total 1042 / 1042 884 / 884 Output Total 350 / 350 Balance 1042 / 1042 534 / 534 Weight 79.5 kg Intake: IV 202 / 202 404 / 404 Gentamicin Inj 80 MG In NS Inj 102 / 102 204 / 204 100 ML @ 100 mls/hr IV.SIG Q8H [facility] Rx#:[id number] Ancef Inj 1,000 MG In NS Inj 100 / 100 200 / 200 100 ML @ 200 mls/hr IV.SIG Q8H [facility] Rx#:[id number] Oral 840 / 840 480 / 480 Output: Urine 350 / 350 Other: # Voids 3 3 Date of Last Bowel Movement 02/01/18 02/01/18 # Bowel Movements 0 0 Narrative: Gen.: No acute distress Head: Normocephalic. Atraumatic. EENT: Pupils equal round and reactive to light. Nose without drainage. Airway intact. Throat without injection. Cardiovascular: Regular rate and rhythm. No murmurs, rubs or gallops. Respiratory: Lungs clear to auscultation bilaterally. No wheezes or rhonchi. Abdomen: Soft, nontender, nondistended. No peritoneal signs. Musculoskeletal: Right foot is bandaged. Neuro: Sensory and motor grossly intact. Cranial nerves II through XII grossly intact. Psych: Appropriate mood and affect Results - Labs CBC & Chem 7: 02/03/18 04:50 02/03/18 04:50 Laboratory Results - last 24 hr 02/03/18 04:50 Hemoglobin A1c 5.0 Microbiology 02/02/18 16:15 Tissue - Toe Gram Stain - Final 02/02/18 16:15 Tissue - Toe Wound Culture - Preliminary No growth in 48 hours 02/02/18 16:15 Other Fungal Smear - Final No fungal elements seen - Procedures Right hallux proximal phalanx ORIF Repair of complex laceration Assessment and Plan - Plan Open right great toe fracture Foot x-ray significant for mildly displaced fracture of the right great toe without dislocation. Laceration present, concern for tendon injury. Podiatry consult appreciated. S/p right hallux proximal phalanx ORIF; Repair of complex laceration 02/02. - continue Ancef and gentamicin. Oral antibiotics upon discharge. - await final cultures. - wound care and weightbearing per podiatry. - pain control as needed. 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 - PT. - walker upon discharge. GERD/hyperlipidemia Stable. - Continue home medications once reconciled. Hyperglycemia Stress reaction. - resolved. PPx: Per surgery Discharge Planning: Anticipate d/c in AM once final cultures are in
[2018-02-05] MEDS: Sod Chloride 0.9% Inj 1,000 ML IV.CONT SCH ×2 (00:51→14:18)
[2018-02-05] MEDS: Gentamicin Inj 80 MG in Sodium Chlor 0.9% Inj 100 ML IV.SIG SCH ×2 (02:55→08:49)
[2018-02-05] MEDS: Senna/Docusate Sodium 8.6/50 MG Tablet PO SCH (08:49)
--- NOTE | 2018-02-05 13:01 | P.PNIM ---
Subjective Interval history: 57 year old male with a PMH of GERD, HLD and [id number] presents to the ED for evaluation of a right great toe injury. The patient reports he was walking this morning after getting out of bed when he tripped on the rug and fell, bending his foot underneath his body. He reports heavy bleeding from a laceration for the next 2 hours. He was able to stop the bleeding and ran errands until this evening when he sought out evaluation from urgent care. There was concern for an open fracture and the patient was sent to the ED for further evaluation. He denies any pain in the foot. No fever/chills. No CP, SOB. No abdominal pain. No nausea/vomiting/diarrhea. 7-19 The patient was sitting up in a chair. His was at the bedside. He said he had no pain. He wanted to know if he would be able to travel by airplane within a week. He wanted to know when the privacy specialist would come by. He had no acute complaints. 720 The patient was feeling well. He was hopeful to go home by tomorrow. He denied any pain. He has had a bowel movement. Discussed with nursing at the bedside. 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 TODAY Physical Exam Vital signs: Vital Signs 02/04/18 16:00 02/04/18 20:00 02/05/18 00:00 Temperature 97.5 F L 97.7 F 97.1 F L Pulse Rate 66 62 74 Respiratory Rate 18 20 20 Blood Pressure 102/62 101/61 105/80 Pulse Oximetry 97 96 97 02/05/18 08:00 Temperature 98.5 F Pulse Rate 69 Respiratory Rate 20 Blood Pressure 118/73 Pulse Oximetry 96 Intake & Output 02/04/18 02/05/18 02/05/18 18:59 06:59 18:59 Intake Total 304 / 304 662 / 662 Output Total 480 / 480 Balance 304 / 304 182 / 182 Weight 79.5 kg Intake: IV 304 / 304 302 / 302 Gentamicin Inj 80 MG In NS Inj 204 / 204 102 / 102 100 ML @ 100 mls/hr IV.SIG Q8H [facility] Rx#:[id number] Ancef Inj 1,000 MG In NS Inj 100 / 100 200 / 200 100 ML @ 200 mls/hr IV.SIG Q8H [facility] Rx#:[id number] Oral 360 / 360 Output: Urine 480 / 480 Other: # Voids 3 Date of Last Bowel Movement 02/04/18 02/04/18 # Bowel Movements 0 Narrative: Gen.: No acute distress Head: Normocephalic. Atraumatic. EENT: Pupils equal round and reactive to light. Nose without drainage. Airway intact. Throat without injection. Cardiovascular: Regular rate and rhythm. No murmurs, rubs or gallops. Respiratory: Lungs clear to auscultation bilaterally. No wheezes or rhonchi. Abdomen: Soft, nontender, nondistended. No peritoneal signs. Musculoskeletal: Right foot is bandaged. Neuro: Sensory and motor grossly intact. Cranial nerves II through XII grossly intact. Psych: Appropriate mood and affect RIGHT LEG IS DRESSED AND NON WEIGHT BEARING Results - Labs CBC & Chem 7: 02/03/18 04:50 02/03/18 04:50 Microbiology 02/02/18 16:15 Tissue - Toe Gram Stain - Final 02/02/18 16:15 Tissue - Toe Wound Culture - Final No growth in 72 hours (aerobically and anaerobically ) 02/02/18 16:15 Other Acid Fast Bacilli Smear - Final No acid fast bacilli seen - Imaging Foot X-Ray 02/01/18 23:02 CONCLUSION: Mildly displaced fractures of the right great toe. No dislocation. - Procedures Right hallux proximal phalanx ORIF Repair of complex laceration Assessment and Plan - Plan Open right great toe fracture Foot x-ray significant for mildly displaced fracture of the right great toe without dislocation. Laceration present, concern for tendon injury. Podiatry consult appreciated. S/p right hallux proximal phalanx ORIF; Repair of complex laceration 02/02. - continue Ancef and gentamicin. Oral antibiotics upon discharge. - await final cultures. - wound care and weightbearing per podiatry. - pain control as needed. 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 - PT. - walker upon discharge. GERD/hyperlipidemia Stable. - Continue home medications once reconciled. Hyperglycemia Stress reaction. - resolved. PPx: Per surgery DC TO HOME TODAY IF GETS WALKER DW PT AND RN AND CM NWB TO RIGHT LOWER EXTREMITY Code Status: FULL CODE Discussed Condition With: RN AND PT AND FAMILY AND CM Discharge Planning: DC TO HOME IF GET WALKER
--- NOTE | 2018-02-05 13:12 | P.DS ---
Date of admission: 02/02/18 00:45 Primary care physician: No Primary Care Physician Attending physician on discharge: Jonathan Hoyos Anticipated date of discharge: 02/05/18 Brief History from admission: 57 year old male with a PMH of GERD, HLD and Irqqfby-Qhxtq-Ggopw presents to the ED for evaluation of a right great toe injury. The patient reports he was walking this morning after getting out of bed when he tripped on the rug and fell, bending his foot underneath his body. He reports heavy bleeding from a laceration for the next 2 hours. He was able to stop the bleeding and ran errands until this evening when he sought out evaluation from urgent care. There was concern for an open fracture and the patient was sent to the ED for further evaluation. He denies any pain in the foot. No fever/chills. No CP, SOB. No abdominal pain. No nausea/vomiting/diarrhea. DS: Diagnosis - Discharge Diagnosis (1) Vfrylut-Bdofu-Jtdze disease Status: Chronic (2) Laceration of right foot Status: Acute (3) Open fracture of great toe of right foot Status: Acute DS: Medications - Discharge Medications Prescriptions: amoxicillin-pot clavulanate [Augmentin] 1 tab PO Q12H #20 tab oxycodone-acetaminophen [Percocet] 1 tab PO Q4-6H PRN #12 tab PRN Reason: Pain sennosides-docusate sodium [Senna Plus] 2 tab PO BID #120 tab DS: Summary Hospital Course: 57 year old male with a PMH of GERD, HLD and Kltagmd-Wbwju-Kljao presents to the ED for evaluation of a right great toe injury. The patient reports he was walking this morning after getting out of bed when he tripped on the rug and fell, bending his foot underneath his body. He reports heavy bleeding from a laceration for the next 2 hours. He was able to stop the bleeding and ran errands until this evening when he sought out evaluation from urgent care. There was concern for an open fracture and the patient was sent to the ED for further evaluation. He denies any pain in the foot. No fever/chills. No CP, SOB. No abdominal pain. No nausea/vomiting/diarrhea. 719 The patient was sitting up in a chair. His was at the bedside. He said he had no pain. He wanted to know if he would be able to travel by airplane within a week. He wanted to know when the pizza cook would come by. He had no acute complaints. 02-04 The patient was feeling well. He was hopeful to go home by tomorrow. He denied any pain. He has had a bowel movement. Discussed with nursing at the bedside. 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[employer] TO HOME TODAY SWITCH TO AUGMENTIN AT DC patient checked in [employer]FORCSE NOT IN SYSTEM WILL GIVE RX FOR PERCOCET 5/325 #12 - Time Spent with Patient Total time spent providing and/or coordinating discharge services: Greater than 30 minutes - Quality: VTE Deep Vein Thrombosis/Pulmonary Embolism Present on Admission: No Exam Vital signs: Vital Signs 02/04/18 16:00 02/04/18 20:00 02/05/18 00:00 Temperature 97.5 F L 97.7 F 97.1 F L Pulse Rate 66 62 74 Respiratory Rate 18 20 20 Blood Pressure 102/62 101/61 105/80 Pulse Oximetry 97 96 97 02/05/18 08:00 Temperature 98.5 F Pulse Rate 69 Respiratory Rate 20 Blood Pressure 118/73 Pulse Oximetry 96 Intake & Output 02/04/18 02/05/18 02/05/18 18:59 06:59 18:59 Intake Total 304 / 304 662 / 662 Output Total 480 / 480 Balance 304 / 304 182 / 182 Weight 79.5 kg Intake: IV 304 / 304 302 / 302 Gentamicin Inj 80 MG In NS Inj 204 / 204 102 / 102 100 ML @ 100 mls/hr IV.SIG Q8H BLAYNE Rx#:[id number] Ancef Inj 1,000 MG In NS Inj 100 / 100 200 / 200 100 ML @ 200 mls/hr IV.SIG Q8H BLAYNE Rx#:[id number] Oral 360 / 360 Output: Urine 480 / 480 Other: # Voids 3 Date of Last Bowel Movement 02/04/18 02/04/18 # Bowel Movements 0 Narrative: Gen.: No acute distress Head: Normocephalic. Atraumatic. EENT: Pupils equal round and reactive to light. Nose without drainage. Airway intact. Throat without injection. Cardiovascular: Regular rate and rhythm. No murmurs, rubs or gallops. Respiratory: Lungs clear to auscultation bilaterally. No wheezes or rhonchi. Abdomen: Soft, nontender, nondistended. No peritoneal signs. Musculoskeletal: Right foot is bandaged. Neuro: Sensory and motor grossly intact. Cranial nerves II through XII grossly intact. Psych: Appropriate mood and affect Results Procedures completed during hospitalization: Right hallux proximal phalanx ORIF Repair of complex laceration Completed studies during hospitalization: Laboratory Results WBC 6.2 th/mm3 (4.0-11.0) 02/03/18 04:50 RBC 4.44 mil/mm3 (4.50-5.90) L 02/03/18 04:50 Hgb 14.2 gm/dL (13.0-17.0) 02/03/18 04:50 Hct 41.8 % (39.0-51.0) 02/03/18 04:50 MCV 94.2 fL (80.0-100.0) 02/03/18 04:50 MCH 32.0 pg (27.0-34.0) 02/03/18 04:50 MCHC 34.0 % (32.0-36.0) 02/03/18 04:50 RDW 12.5 % (11.6-17.2) 02/03/18 04:50 Plt Count 168 th/mm3 (150-450) 02/03/18 04:50 MPV 8.6 fL (7.0-11.0) 02/03/18 04:50 Neut % (Auto) 81.9 % (16.0-70.0) H 02/03/18 04:50 Lymph % (Auto) 13.0 % (9.0-44.0) 02/03/18 04:50 [place] % (Auto) 4.8 % (0.0-8.0) 02/03/18 04:50 Eos % (Auto) 0.2 % (0.0-4.0) 02/03/18 04:50 Baso % (Auto) 0.1 % (0.0-2.0) 02/03/18 04:50 Neut # (Auto) 5.1 th/mm3 (1.8-7.7) 02/03/18 04:50 Lymph # (Auto) 0.8 th/mm3 (1.0-4.8) L 02/03/18 04:50 [place] # (Auto) 0.3 th/mm3 (0.0-0.9) 02/03/18 04:50 Eos # (Auto) 0.0 th/mm3 (0.0-0.4) 02/03/18 04:50 Baso # (Auto) 0.0 th/mm3 (0.0-0.2) 02/03/18 04:50 WBC Differential . 02/03/18 04:50 Differential Comment Auto diff final 02/03/18 04:50 PT 10.3 sec (9.8-11.6) 02/01/18 23:20 INR 1.0 Ratio 02/01/18 23:20 APTT 23.9 sec (24.3-30.1) L 02/01/18 23:20 Sodium 142 meq/L (136-145) 02/03/18 04:50 Potassium 4.2 meq/L (3.5-5.1) 02/03/18 04:50 Chloride 108 meq/L (98-107) H 02/03/18 04:50 Carbon Dioxide 26.1 meq/L (21.0-32.0) 02/03/18 04:50 Anion Gap 8 meq/L (5-15) 02/03/18 04:50 BUN 12 mg/dL (7-18) 02/03/18 04:50 Creatinine 0.81 mg/dL (0.60-1.30) 02/03/18 04:50 Estimated GFR Greater than 89 mL/min (>89) 02/03/18 04:50 Random Glucose 122 mg/dL (74-106) H 02/03/18 04:50 Hemoglobin A1c 5.0 % (4.3-6.0) 02/03/18 04:50 Calcium 8.9 mg/dL (8.5-10.1) 02/03/18 04:50 Impressions Foot X-Ray 02/01/18 23:02 CONCLUSION: Mildly displaced fractures of the right great toe. No dislocation. - Impressions ITS Impressions Foot X-Ray 02/01/18 23:02 CONCLUSION: Mildly displaced fractures of the right great toe. No dislocation. Discharge Plan - Discharge Disposition Patient Disposition: 01 Discharge Home - Discharge Condition Condition: Good - Discharge Order Discharge Orders: Discharge Order (Routine); Ordered 02/05/18 Ordered By: Jonathan Hoyos - Discharge Details Anticipated Discharge Date: 02/05/18 - Physicians Team Primary Care Provider: Primary Care Beth Palmer Attending Provider: Jonathan Hoyos Other Providers: Tyrell Rodriguez DPM ; [facility]
== END 2018-02-05 17:16 | disposition home or self-care (01) ==
LOC: NEPE 19:27 → NEDA 19:27 → OBSVTOIN 02-02 00:45 → NEDH 02-02 03:55 → N06 02-02 19:42
PROVIDERS: ADMIT Hospitalist; ATTEND Hospitalist
PROC: ORIFTOE (2018-02-02 16:09)